=== PATIENT | female | born 1940 | race Caucasian/White ===

== ENCOUNTER 2020-12-20 08:05 | Day surgery (SDC) | payer MEDICARE ==
[~2020-12-20] VITALS: Ht 165.1 cm; Wt 94.4 kg
[~2020-12-20 08:05] MED LIST: ALLO300T PO; ASPI325T17 PO; ATOR20TA37 PO; GABA-826 PO; GABA300C PO; GLIP5TAB10 PO; HYDROCHLOROTH12.5 MG PO; LEVO50TA5 PO; LEVO75TA85 PO; LISI1TAB39 PO; LISI40TA9 PO; METF10007 PO; MULT1CAP19 PO
[2020-12-20] MEDS ORDERED: CHLORHEXIDINE 15 ML UDC PO ONE (09:00)
[2020-12-20] MEDS ORDERED: LACTATED RINGERS 1,000 ML IV SCH (09:00)
[2020-12-20 09:18] VITALS: BP 137/86
[2020-12-20] MEDS ORDERED: OMNIPAQUE 350 MG/ML, 50 ML BOTTLE ONE (09:30)
[2020-12-20 09:36] LABS: ALANINE AMINOTRANSFERASE 19 U/L (12-78); ALBUMIN 3.5 g/dL (3.4-5.0); ANION GAP 7 mmol/L (5-15); CALCIUM 10.1 mg/dL (8.5-10.1); CHLORIDE 109 mmol/L (98-107)
[2020-12-20 09:39] LABS: ALKALINE PHOSPHATASE 144 U/L (45-117); BILIRUBIN,TOTAL 1.1 mg/dL (0.2-1.0); TOTAL PROTEIN 7.8 g/dL (6.4-8.2)
[2020-12-20] MEDS ORDERED: FENTANYL PF 100 MCG/2ML ONE (09:45)
[2020-12-20] MEDS ORDERED: PROPOFOL 50 ML ONE (09:45)
[2020-12-20] MEDS ORDERED: SUCCINYLCHOLINE 20 MG/ML, 10ML ONE (09:46)
[2020-12-20] MEDS ORDERED: ONDANSETRON 2MG/ML, 2ML ONE (09:46)
[2020-12-20] MEDS ORDERED: OXYcodone 5 MG/5 ML ORAL.SOL UDC PO PRN (10:30)
[2020-12-20] MEDS ORDERED: MEPERIDINE/PF 25MG/0.5ML IVPush PRN (10:30)
[2020-12-20] MEDS ORDERED: LABETALOL 5MG/ML, 20ML IV PRN (10:30)
[2020-12-20] MEDS ORDERED: EPHEDRINE 50 MG/ML, 1ML IVPush PRN (10:30)
[2020-12-20] MEDS ORDERED: EPHEDRINE 50 MG/ML, 1ML IM PRN (10:30)
[2020-12-20] MEDS ORDERED: DIAZEPAM 5 MG/ML, 2ML IVPush PRN (10:30)
[2020-12-20] MEDS ORDERED: DIPHENHYDRAMINE 50 MG/ML, 1ML IVPush PRN (10:30)
[2020-12-20] MEDS ORDERED: ONDANSETRON 2MG/ML, 2ML IVPush PRN (10:30)
[2020-12-20] MEDS ORDERED: morphine SULFATE 10 MG/ML, 1ML IVPush PRN (10:30)
[2020-12-20] MEDS ORDERED: FENTANYL PF 100 MCG/2ML IV PRN (10:30)
[2020-12-20] MEDS ORDERED: PROMETHAZINE 25 MG/ML, 1ML IVPush PRN (10:30)
[2020-12-20] MEDS ORDERED: PROPOFOL 10 MG/ML, 20ML ONE (16:01)
[2020-12-20] MEDS ORDERED: ROCURONIUM 10MG/ML,5ML ONE (16:01)
== END 2020-12-20 12:00 | disposition home or self-care (01) ==
LOC: OUT 08:05
PROVIDERS: ATTEND Internal Medicine Gastroenterology
DX: K80.70 Calculus of gallbladder and bile duct without cholecystitis without obstruction (principal); Z20.822 Contact with and (suspected) exposure to COVID-19; Z79.899 Other long term (current) drug therapy; Z88.0 Allergy status to penicillin; Z88.2 Allergy status to sulfonamides
CPT/HCPCS: 43262; 43264; 74328; 80053; 82962; 87635; 93005; C1769; J0330; J2405; J2704; J3010; J7120; Q9967

== ENCOUNTER 2021-01-23 10:57 | Observation (INO) | payer MEDICARE ==
[~2021-01-23] VITALS: Ht 165.1 cm; Wt 98.2 kg
[~2021-01-23 10:57] MED LIST changes: +BUPIVACAINE/PF 0.5% ONE; +EPINEPHRINE 1 MG/ML, 1ML ONE
[2021-01-23] MEDS ORDERED: ATOR10TA9 PO (11:49)
[2021-01-23 11:52] VITALS: BP 119/78
[2021-01-23] MEDS ORDERED: CHLORHEXIDINE 15 ML UDC PO ONE (12:00)
[2021-01-23] MEDS ORDERED: LACTATED RINGERS 1,000 ML IV SCH (12:00)
[2021-01-23] MEDS ORDERED: FENTANYL PF 250 MCG/5ML ONE (12:42)
[2021-01-23] MEDS ORDERED: SUCCINYLCHOLINE 20 MG/ML, 10ML ONE (12:55)
[2021-01-23] MEDS ORDERED: PROPOFOL 10 MG/ML, 20ML ONE (12:55)
[2021-01-23] MEDS ORDERED: ROCURONIUM 10 MG/ML,10ML ONE (12:55)
[2021-01-23] MEDS ORDERED: CEFAZOLIN 1,000 MG ONE (12:55)
[2021-01-23] MEDS ORDERED: PROPOFOL 10 MG/ML, 50ML ONE (12:55)
[2021-01-23] MEDS ORDERED: PROMETHAZINE 25 MG/ML, 1ML IVPush PRN (13:30)
[2021-01-23] MEDS ORDERED: DIAZEPAM 5 MG/ML, 2ML IVPush PRN (13:30)
[2021-01-23] MEDS ORDERED: EPHEDRINE 50 MG/ML, 1ML IM PRN (13:30)
[2021-01-23] MEDS ORDERED: HYDROmorphone 1 MG/ML, 1ML INJ IVPush PRN (13:30)
[2021-01-23] MEDS ORDERED: MEPERIDINE/PF 25MG/0.5ML IVPush PRN (13:30)
[2021-01-23] MEDS ORDERED: EPHEDRINE 50 MG/ML, 1ML IVPush PRN (13:30)
[2021-01-23] MEDS ORDERED: LABETALOL 5MG/ML, 20ML IV PRN (13:30)
[2021-01-23] MEDS ORDERED: FENTANYL PF 100 MCG/2ML IV PRN (13:30)
[2021-01-23] MEDS ORDERED: DIPHENHYDRAMINE 50 MG/ML, 1ML IVPush PRN (13:30)
[2021-01-23] MEDS ORDERED: ONDANSETRON 2MG/ML, 2ML IVPush PRN ×2 (13:30→14:00)
[2021-01-23] MEDS ORDERED: OXYcodone 5 MG/5 ML ORAL.SOL UDC PO PRN (13:30)
[2021-01-23] MEDS ORDERED: morphine SULFATE 10 MG/ML, 1ML IV PRN (14:00)
[2021-01-23] MEDS ORDERED: hydrALAzine 20 MG/ML, 1ML IV PRN (14:00)
[2021-01-23] MEDS: LACTATED RINGERS 1,000 ML IV SCH ×2 (14:00→22:00)
[2021-01-23] MEDS ORDERED: ACETAMINOPHEN 650 MG/20.3 ML UDC PO PRN (14:00)
[2021-01-23] MEDS ORDERED: FAMOTIDINE 20 MG/2 ML IV SCH (14:00)
[2021-01-23] MEDS ORDERED: FAMOTIDINE 20 MG TABLET PO SCH (14:00)
[2021-01-23] MEDS ORDERED: ENALAPRILAT 1.25 MG/ML, 1ML IV PRN (14:00)
[2021-01-23] MEDS ORDERED: ONDANSETRON 2MG/ML, 2ML ONE (14:09)
[2021-01-23] MEDS ORDERED: ACETAMINOPHEN 650 MG/20.3 ML UDC ONE (14:34)
[2021-01-23] MEDS ORDERED: OXYcodone 5 MG/5 ML ORAL.SOL UDC ONE (14:35)
[2021-01-23] MEDS: INSULIN REGULAR 100 UNITS/ML, 3ML VIAL SQ-INSULIN SCH ×2 (16:00→21:00)
[2021-01-23] MEDS: HYDROcodone/APAP 5/325 TABLET PO PRN (19:41)
[2021-01-23 20:10] VITALS: BP 124/82
[2021-01-24 00:14] VITALS: BP 115/76
[2021-01-24 04:14] VITALS: BP 118/78
[2021-01-24] MEDS: HYDROcodone/APAP 5/325 TABLET PO PRN ×2 (04:58→09:27)
[2021-01-24] MEDS: LACTATED RINGERS 1,000 ML IV SCH (06:00)
[2021-01-24] MEDS: INSULIN REGULAR 100 UNITS/ML, 3ML VIAL SQ-INSULIN SCH (06:33)
[2021-01-24 07:55] VITALS: BP 104/68
[2021-01-24] MEDS ORDERED: HYDR-2214 PO (08:54)
[2021-01-24] MEDS ORDERED: GABAPENTIN 300 MG CAPSULE PO SCH (09:00)
[2021-01-24] MEDS ORDERED: LEVOTHYROXINE 75 MCG TABLET PO SCH (09:00)
[2021-01-24] MEDS ORDERED: ENOXAPARIN 40 MG/0.4 ML SQ SCH (09:00)
[2021-01-24] MEDS ORDERED: metFORMIN XR 500 MG TAB.ER.24H PO SCH (09:00)
[2021-01-24] MEDS ORDERED: LISINOPRIL 40 MG TABLET PO SCH (09:00)
[2021-01-24] MEDS ORDERED: ATORVASTATIN 10 MG TABLET PO SCH (21:00)
== END 2021-01-24 11:00 | disposition home or self-care (01) ==
LOC: OUT 10:57 → ORIP 13:38 → 4NE 15:42 → DCLOUNGE 01-24 10:46
PROVIDERS: ADMIT Thoracic Surgery (Cardiothoracic Vascular Surgery); ATTEND Thoracic Surgery (Cardiothoracic Vascular Surgery)
DX: K80.10 Calculus of gallbladder with chronic cholecystitis without obstruction (principal); Z20.822 Contact with and (suspected) exposure to COVID-19; Z88.0 Allergy status to penicillin; Z79.899 Other long term (current) drug therapy
CPT/HCPCS: 47562; 82962; 87635; 88304; 96372; G0378; J0171; J0330; J0690; J1650; J2405; J2704; J3010; J7120; S0020